=== PATIENT | female | born 1985 | race Caucasian/White ===

== ENCOUNTER → 2016-08-23 | Outpatient (CLI) | payer OTHER ==
--- NOTE | 2016-08-23 18:39 | CT ---
EXAMINATION TYPE: CT sinus wo con DATE OF EXAM: 08/23/2016 6:30 PM COMPARISON: NONE HISTORY: Nasal congestion, excess mucus and headaches x [address] DLP: 577.30 mGycm Automated exposure control for dose reduction was used. FINDINGS: There is moderate mucosal thickening in the right maxillary sinus. There is minimal mucosal thickenin g at the right ostiomeatal complex. There is thinning of the nasal turbinates. The nasal septum devia tariq to the left side. Orbital margins are intact. The maxilla is intact. I see no bony destructive pr ocess. There is no evidence of orbital mass. IMPRESSION: MILD RIGHT-SIDED MAXILLARY SINUSITIS. OTHERWISE NEGATIVE EXAM.
== END | disposition home or self-care (01) ==
LOC: RADCTMAIN 18:17
PROVIDERS: ATTEND Family Medicine
DX: J32.0 Chronic maxillary sinusitis (principal)
CPT/HCPCS: 70486

== ENCOUNTER 2020-02-29 09:01 | Inpatient (IN) | payer OTHER ==
[2020-02-29] MEDS ORDERED: CITRIC ACID-SODIUM CITRATE 15 ML CUP PO ONE (09:59)
[2020-02-29] MEDS ORDERED: CLINDAMYCIN 900 MG in DEXTROSE 5% IN WATER 50 ML IVPB ONE ×2 (09:59)
[2020-02-29] MEDS ORDERED: GENTAMICIN 280 MG in SODIUM CHLORIDE 0.9% 100 ML IVPB ONE (09:59)
[2020-02-29] MEDS ORDERED: LACTATED RINGERS 1,000 ML IV ONE (09:59)
--- NOTE | 2020-02-29 10:21 | US ---
EXAMINATION TYPE: US OB limited DATE OF EXAM: 02/29/2020 COMPARISON: NONE CLINICAL HISTORY: position, breech position last known. position EXAM PERFORMED: Transabdominal (TA) GESTATIONAL AGE / DATING Physician Established: (37 weeks/6 days) EDC: 03/15/20 No growth performed on today?s study per ordering physician SURVEY PRESENTATION: Breech LIE: Longitudinal HEART RATE: 150 bpm RHYTHM: Normal IMPRESSION: Limited exam performed for positioning demonstrates a 37 week 6 day gestation in a breech presentation. Heart rate 150 bpm.
[2020-02-29 10:43] LABS: Basophils % (A) 0 %; Eosinophils # (A) 0.3 k/uL (0-0.7); Eosinophils % (A) 2 %; HCT 41.3 % (34.0-46.0); HGB 13.3 gm/dL (11.4-16.0); Lymphocytes # (A) 2.3 k/uL (1.0-4.8); Lymphocytes % (A) 12 %; MCH 29.7 pg (25.0-35.0); MCHC 32.2 g/dL (31.0-37.0); MCV 92.2 fL (80.0-100.0); Mean Platelet Volume 11.2; Monocytes # (A) 1.1 k/uL (0-1.0); Monocytes % (A) 6 %; Neutrophils # (A) 15.1 k/uL (1.3-7.7); Neutrophils % (A) 80 %; Platelet Count 203 k/uL (150-450); RBC 4.48 m/uL (3.80-5.40); RDW 12.6 % (11.5-15.5); WBC 18.9 k/uL (3.8-10.6)
[2020-02-29] MEDS ORDERED: diphenhydrAMINE 50 MG/ML 1 ML VIAL IVP PRN ×2 (11:28)
[2020-02-29] MEDS ORDERED: diphenhydrAMINE 25 MG CAP PO PRN (11:28)
[2020-02-29] MEDS ORDERED: ZOLPIDEM 5 MG TAB PO PRN (11:28)
[2020-02-29] MEDS ORDERED: ONDANSETRON 4 MG/2 ML VIAL IVP PRN (11:28)
[2020-02-29] MEDS ORDERED: NALOXONE 0.4 MG/ML 1 ML VIAL IV PRN (11:28)
[2020-02-29] MEDS ORDERED: diphenhydrAMINE 50 MG CAP PO PRN (11:28)
[2020-02-29] MEDS ORDERED: SIMETHICONE 80 MG CHEWABLE PO PRN (11:28)
[2020-02-29] MEDS ORDERED: METOCLOPRAMIDE 5 MG/ML 2 ML VIAL IVP PRN (11:28)
[2020-02-29] MEDS ORDERED: OXYTOCIN 20 UNITS/1000 ML NS 1,000 ML IV SCH (11:30)
--- NOTE | 2020-02-29 11:33 | P.HPOB ---
History of Present Illness H&P Date: 02/29/20 Chief Complaint: IUP at 376/7 weeks, labor, breech This is a 34-year-old 3 para 1011 at 37-6/7 weeks with an estimated due date of 03/15. Patient presents with complaints of contractions that started around 5 AM, patient notes he is contractions to be quite uncomfortable. Patient denies vaginal bleeding or loss of fluid. Patient has been receiving routine care with myself within known breech presentation. On blood work shows a blood type of O+, rubella status immune, hepatitis B surface antigen negative, HIV negative, RPR nonreactive, group beta strep negative. Review of Systems Constitutional: Denies chills, Denies fatigue, Denies fever Ears, nose, mouth and throat: Denies headache Cardiovascular: Reports leg edema Respiratory: Denies dyspnea Gastrointestinal: Denies constipation, Denies diarrhea, Denies nausea, Denies vomiting Genitourinary: Reports Past Medical History Past Medical History: No Reported History History of Any Multi-Drug Resistant Organisms: None Reported Past Surgical History: No Surgical Hx Reported Past Anesthesia/Blood Transfusion Reactions: No Reported Reaction Past Psychological History: No Psychological Hx Reported Smoking Status: Never smoker - Past Family History Mother Additional Family Medical History / Comment(s): MS Medications and Allergies Home Medications Medication Instructions Recorded Confirmed Type Pnv No.95/Ferrous Fum/Folic AC 1 each PO DAILY 02/29/20 02/29/20 History [ Multivitamin Tablet] Allergies Allergy/AdvReac Type Severity Reaction Status Date / Time Penicillins Allergy Rash/Hives Verified 02/29/20 09:16 Exam Osteopathic Statement: *. No significant issues noted on an osteopathic structural exam other than those noted in the History and Physical/Consult. 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 Breech presentation is confirmed by ultrasound Results Result Diagrams: 02/29/20 09:55 Abnormal Lab Results - Last 24 Hours (Table) 02/29/20 Range/Units 09:55 WBC 18.9 H (3.8-10.6) k/uL Assessment and Plan (1) Term Current Visit: Yes Status: Acute Code(s): Z34.90 - ENCNTR FOR SUPRVSN OF NORMAL , UNSP, UNSP TRIMESTER SNOMED Code(s): 11323265 (2) Breech presentation Current Visit: Yes Status: Acute Code(s): O32.1XX0 - MATERNAL CARE FOR BREECH PRESENTATION, UNSP SNOMED Code(s): 0641236 Plan: Patient is admitted to labor and delivery for planned primary secondary to breech presentation. is reviewed all questions are ans wered. Risser reviewed with patient including but not limited to infection, bleeding, damage to bladder, bowel, injury patient states understanding and understands the reasons to proceed.
--- NOTE | 2020-02-29 11:36 | P.OP ---
Date of Procedure: 02/29/20 Preoperative Diagnosis: IUP at 37-6/7 weeks, breech presentation, active labor Postoperative Diagnosis: Same Procedure(s) Performed: Primary low transverse section Anesthesia: spinal Surgeon: Aga Sibley Centralized Traffic Control Operator #1: Macho Castellano Estimated Blood Loss (ml): 552 IV fluids (ml): 1,100 Urine output (ml): 150 Pathology: none sent Condition: stable Disposition: observation Indications for Procedure: This 34 year old 3 para 1011 at 37-6/7 weeks presented to labor and delivery with regular painful contractions and known breech presentation. Operative Findings: Normal uterus tubes and ovaries were appreciated, female delivered at 1102, weight of 5 lbs. 10 oz. in afua breech presentation Apgars of 8 and 9 at one and 5 minutes respectively. Description of Procedure: Patient is taken back to the operating suite where spinal anesthesia was found to be adequate. She is prepped and draped in the normal sterile fashion in do rsal supine position. A Pfannenstiel skin incision is made with the scalpel and carried through the underlying layer of fascia. The fascia is incised in the midline and extended laterally. The superior aspect of the fascial incision was then grasped chanelle clamps, elevated and underlying rectus muscles dissected off sharply. Attention was then turned the patient's inferior aspect of the fascial incision which was grasped chanelle clamps, elevated and underlying rectus muscles dissected off sharply. The rectus muscles were in the midline the peritoneum was identified and entered. The bladder blade was then inserted and the vesicouterine peritoneum was identified and the bladder flap was then created. The bladder blade was then reinserted. The hysterotomy incision was then made with the scalpel the sacrum was then encountered and the infant was delivered in breech presentation in the usual fashion. Of note amniotomy revealed clear fluid. The umbilical cord was then doubly clamped and cut and the infant was handed off to awaiting RN. The placenta was then delivered manually and the uterus cleared of all clots and debris. The uterus was then delivered from the abdomen. The uterine incision was closed with 0 Vicryl in a running locked fashion a second layer of suture was used to obtain hemostasis. He states his was appreciated. The uterus was then returned to the abdomen the uterine incision was inspected and hemostasis was appreciated. The gutters were cleared of all clots and debris. The fascia was then closed with 0 Vicryl in a running fashion from one lateral edge the other. The subcutaneous tissue was irrigated found to be hemostatic and closed with 3-0 Vicryl in a running fashion. The skin was then closed in subcu fashion with 4-0 Vicryl. Steri- Strips and sterile dressings were applied. All counts were noted to be correct 2. Patient and infant tolerated delivery well and were taken back to the patient's birthing suite.
[2020-02-29] MEDS ORDERED: ACETAMINOPHEN IV (For NPO) 1,000 MG in EMPTY BAG 1 BAG IVPB ONE (11:45)
[2020-02-29] MEDS ORDERED: IBUPROFEN IV 800 MG in SODIUM CHLORIDE 0.9% 250 ML IV ONE (11:45)
[2020-02-29] MEDS: LACTATED RINGERS 1,000 ML IV SCH ×2 (14:58→16:24)
[2020-02-29] MEDS: SENNOSIDES-DOCUSATE SODIUM 1 EACH TAB PO SCH (22:02)
[2020-03-01] MEDS: IBUPROFEN 600 MG TAB PO PRN ×3 (04:53→22:39)
--- NOTE | 2020-03-01 06:29 | P.PN ---
Progress Note - Text Progress Note Date: 03/01/20 Chloé is postop day 1 from a with spinal Duramorph. She's been doing very well postoperatively. She denies any significant pain. She denies any weakness, numbness, tingling, significant pruritus, or any bowel or bladder incontinence. She's been able to ambulate and able to urinate. She is awake this morning. No signs of sedation.
--- NOTE | 2020-03-01 08:32 | P.PNOBGPC ---
Subjective - Subjective Principal diagnosis: Postop day 1 Interval history: This 34-year-old 3 para 1011 presented to labor and delivery yesterday at 37-5/7 weeks in active labor and breech presentation. Patient was taken for primary . Patient has done well status post primary . On this postop day #1 she is a billing and voiding without difficulty. She is tolerating a regular diet without nausea or vomiting. She states her pain is well-controlled and denies concerns. Patient reports: Reports appetite normal, Reports voiding normally, Reports pain well controlled, Reports ambulating normally Pegram: doing well, nursing well Objective - Vital Signs Latest vital signs: Vital Signs Temp Pulse Resp BP Pulse Ox 03/01/20 04:00 98.0 F 59 L 16 91/52 98 03/01/20 00:00 97.5 F L 62 18 90/56 98 02/29/20 20:00 97.6 F 55 L 16 100/56 99 02/29/20 15:16 96.6 F L 62 17 102/57 99 02/29/20 13:30 97.7 F 55 L 17 103/56 100 02/29/20 13:00 54 L 18 97/54 100 02/29/20 12:30 96.9 F L 56 L 18 93/55 100 02/29/20 12:00 56 L 18 101/60 100 02/29/20 11:45 64 18 108/57 02/29/20 11:30 96.5 F L 78 18 125/59 99 02/29/20 09:55 97.1 F L 88 16 107/69 99 Intake and Output 02/29/20 03/01/20 03/01/20 22:59 06:59 14:59 Output Total 550 500 Balance -550 -500 Output: Urine 550 500 Other: Voiding Method Indwelling Catheter # Voids 0 0 - Exam Extremities: Present: normal, edema Abdomen: Present: normal appearance, soft Incision: Present: normal, dry Uterus: Present: normal, firm - Labs Labs: Abnormal Lab Results - Last 24 Hours (Table) 02/29/20 Range/Units 09:55 WBC 18.9 H (3.8-10.6) k/uL Neutrophils # 15.1 H (1.3-7.7) k/uL Monocytes # 1.1 H (0-1.0) k/uL Assessment and Plan (1) Term Current Visit: Yes Status: Acute Code(s): Z34.90 - ENCNTR FOR SUPRVSN OF NORMAL , UNSP, UNSP TRIMESTER SNOMED Code(s): 86406345 (2) Breech presentation Current Visit: Yes Status: Acute Code(s): O32.1XX0 - MATERNAL CARE FOR BREECH PRESENTATION, UNSP SNOMED Code(s): 7600864 (3) S/P section Current Visit: Yes Status: Acute Code(s): Z98.891 - HISTORY OF UTERINE SCAR FROM PREVIOUS SURGERY SNOMED Code(s): 563638429 Plan: This 34-year-old 3 para 1011 status post primary for breech presentation. Patient is doing well postoperatively will plan to continue routine postoperative care and anticipate discharge home tomorrow morning.
[2020-03-01] MEDS: SENNOSIDES-DOCUSATE SODIUM 1 EACH TAB PO SCH ×2 (08:44→19:53)
[2020-03-01 09:22] LABS: Basophils % (A) 0 %; Eosinophils # (A) 0.2 k/uL (0-0.7); Eosinophils % (A) 1 %; HCT 35.7 % (34.0-46.0); HGB 11.5 gm/dL (11.4-16.0); Lymphocytes # (A) 1.8 k/uL (1.0-4.8); Lymphocytes % (A) 11 %; MCH 29.7 pg (25.0-35.0); MCHC 32.1 g/dL (31.0-37.0); MCV 92.5 fL (80.0-100.0); Mean Platelet Volume 11.1; Monocytes # (A) 0.7 k/uL (0-1.0); Monocytes % (A) 5 %; Neutrophils % (A) 82 %; Platelet Count 219 k/uL (150-450); RBC 3.86 m/uL (3.80-5.40); RDW 12.3 % (11.5-15.5); WBC 15.9 k/uL (3.8-10.6)
[2020-03-01] MEDS: ACETAMINOPHEN TAB 325 MG TAB PO PRN ×2 (11:09→19:53)
[2020-03-02] MEDS ORDERED: diphenhydrAMINE 50 MG/ML 1 ML VIAL IVP PRN ×2 (01:38)
[2020-03-02] MEDS ORDERED: ONDANSETRON 4 MG/2 ML VIAL IVP PRN (01:38)
[2020-03-02] MEDS ORDERED: NALOXONE 0.4 MG/ML 1 ML VIAL IV PRN (01:39)
[2020-03-02] MEDS: IBUPROFEN 600 MG TAB PO PRN (05:16)
[2020-03-02] MEDS: LACTATED RINGERS 1,000 ML IV SCH ×5 (07:25→07:29)
[2020-03-02] MEDS: ACETAMINOPHEN TAB 325 MG TAB PO PRN (08:49)
[2020-03-02] MEDS: SENNOSIDES-DOCUSATE SODIUM 1 EACH TAB PO SCH (08:50)
--- NOTE | 2020-03-02 09:08 | P.DS ---
Providers Date of admission: 02/29/20 10:00 Expected date of discharge: 03/02/20 Attending physician: Aga Sibley Primary care physician: Stated None - Discharge Diagnosis(es) (1) Term Current Visit: Yes Status: Acute (2) Breech presentation Current Visit: Yes Status: Acute (3) S/P section Current Visit: Yes Status: Acute Hospital Course: This is a 34-year-old 3 para 1011 that presented to labor and delivery at 37-5/7 weeks with complaints of regular painful contractions. Patient was noted to be 4 cm and breech in presentation. Patient was known breech presentation. Patient was admitted to labor and delivery and primary was performed secondary to breech presentation. For further details on the C- section please see the operative report. Patient delivered a viable female at 1102, weight of 5 lbs. 10 oz. with Apgars of 8 and 9 at one and 5 minutes respectively. Patient's postoperative course has been essentially uneventful. On this day #2 she is ambulating and voiding without difficulty. She is tolerating a regular diet without nausea or vomiting. States her pain is well-controlled and denies concerns. She does wish discharge home. Plan - Discharge Summary New Discharge Prescriptions: No Action Pnv No.95/Ferrous Fum/Folic AC [ Multivitamin Tablet] 1 each PO DAILY Discharge Medication List Pnv No.95/Ferrous Fum/Folic AC [ Multivitamin Tablet] 1 each PO DAILY 02/29/20 [History] Follow up Appointment(s)/Referral(s): Aga Sibley DO [Doctor of Osteopathic Medicine] - 2 Weeks Discharge Disposition: HOME SELF-CARE
[2020-03-02 09:36] VITALS: BP 104/60; PULSE 68; RESP 16; TEMP 97.7
== END 2020-03-02 11:10 | disposition home or self-care (01) | DRG 788 ==
LOC: FBPOP 09:01 → 4FBP 10:00
PROVIDERS: ADMIT Obstetrics & Gynecology Obstetrics; ATTEND Obstetrics & Gynecology Obstetrics
PROC: 10D00Z1 Extraction of Products of Conception, Low, Open Approach (ICD-10-PCS; principal; 2020-02-29 10:38)
DX: O64.1XX0 Obstructed labor due to breech presentation, not applicable or unspecified (principal); Z37.0 Single live birth; Z3A.37 37 weeks gestation of pregnancy; O99.62 Diseases of the digestive system complicating childbirth; K21.9 Gastro-esophageal reflux disease without esophagitis; Z79.899 Other long term (current) drug therapy; Z82.0 Family history of epilepsy and other diseases of the nervous system; Z88.0 Allergy status to penicillin
CPT/HCPCS: 59025; 76815; 85025; 86850; 86900; 86901; 99213

== ENCOUNTER → 2023-04-28 | Outpatient (CLI) | payer OTHER ==
--- NOTE | 2023-04-28 14:48 | CA ---
Exercise Stress Test Report Name: Chloé Cardenas Exam Date: 04/28/2023 10:49 Exam Location: [place] Stress Ht (in): 62 Wt (lb): 160 BSA: 1.74 Ordering Phys: Vicky Smith DO Referring Phys: VICKY SMITH,, Technologist: PHUONG Age: 37 Gender: F : 1985 Procedure CPT: Indications: R00.1 bradycardia ICD-10 Codes: Patient History: CHEST PAIN, PALPITATIONS, NUMBNESS IN ARM Medications: NONR Meds past 24 hrs: Pretest Chest Pain: STRESS TEST Sandro Protocol Exercise Duration (min:sec): 07:[address] Depressions (mm): Angina Score: Dsouza Score: Resting HR (bpm): 86 Peak HR (bpm): 156 Resting BP (mmHg): 104 / 77 Peak BP (mmHg): 158 / 71 MPHR: 181 Target HR: 154 % MPHR: 86 METS: 8.9 Total Dose: Peak Dose: Atropine: Double Product: 57689 BP Response: Stress Termination: MAX EXERTION/TARGET HR Stress Symptoms: NO SYMPTOMS Stress Summary: ECG ANALYSIS Resting ECG: Stress ECG: CONCLUSIONS Patient underwent exercise stress EKG with a Sandro protocol treadmill stress test. Patient exercised into Stage 3 for a total of 7 minutes and 1 reaching a total of 8.9 METS. Patient's maximum heart rate was 156 which represented 86% age- predicted maximum heart rate. Stress EKG findings: At baseline patient's EKG showed normal sinus rhythm, normal axis, no significant ST-T wave abnormalities. At peak exercise, EKG showed no significant change from baseline. Conclusions: 1. Normal EKG response to exercise without evidence of inducible ischemia. 2. Fair exercise capacity. Dr. Jose Alberto Mendoza DO (Electronically Signed) Final Date: 28 April 2023 14:46
== END | disposition home or self-care (01) ==
LOC: RADNMMAIN 10:16
PROVIDERS: ATTEND Family Medicine
DX: R00.1 Bradycardia, unspecified (principal); R00.2 Palpitations; R07.9 Chest pain, unspecified; R20.0 Anesthesia of skin
CPT/HCPCS: 93017

== ENCOUNTER → 2023-04-28 | Outpatient (CLI) | payer OTHER ==
--- NOTE | 2023-04-29 12:29 | CA ---
Transthoracic Echo Report Name: Chloé Cardenas Age: 37 Gender: F : 1985 Exam Date: 04/28/2023 14:55 Exam Location: [place] Echo Ht (in): 62 Wt (lb): 160 Ordering Physician: Demetrio Tineo DO Attending/Referring Phys: Summer Babysitter Maria Teresa Easley RDCS Procedure CPT: Indications: R00.1 bradycardia Cardiac Hx: Technical Quality: Good Contrast 1: Total Dose (mL): Contrast 2: Total Dose (mL): MEASUREMENTS (Male / Female) Normal Values 2D ECHO LV Diastolic Diameter PLAX 4.6 cm 4.2 - 5.9 / 3.9 - 5.3 cm LV Systolic Diameter PLAX 3.0 cm IVS Diastolic Thickness 0.9 cm 0.6 - 1.0 / 0.6 - 0.9 cm LVPW Diastolic Thickness 1.0 cm 0.6 - 1.0 / 0.6 - 0.9 cm LV Relative Wall Thickness 0.4 RV Internal Dim ED PLAX 3.2 cm LA Systolic Diameter LX 3.6 cm 3.0 - 4.0 / 2.7 - 3.8 cm LV Diastolic Volume MOD 4C 79.1 cm??? LV Systolic Volume MOD 4C 37.1 cm??? LV Ejection Fraction MOD 4C 53.1 % LV Cardiac Index MOD 4C 1393.8 cm???/min???m??? LV Diastolic Length 4C 8.4 cm LV Systolic Length 4C 6.7 cm LV Diastolic Volume MOD 2C 58.4 cm??? LV Systolic Volume MOD 2C 30.8 cm??? LV Ejection Fraction MOD 2C 47.3 % LV Cardiac Index MOD 2C 917.9 cm???/min???m??? LV Diastolic Length 2C 8.0 cm LV Systolic Length 2C 6.6 cm LA Volume 37.0 cm??? 18 - 58 / 22 - 52 cm??? LA Volume Index 20.5 cm???/m??? 16 - 28 cm???/m??? M-MODE Aortic Root Diameter MM 2.9 cm MV E Point Septal Separation 0.7 cm AV Cusp Separation MM 2.2 cm DOPPLER AV Peak Velocity 157.7 cm/s AV Peak Gradient 10.0 mmHg MV Area PHT 3.3 cm??? Mitral E Point Velocity 89.6 cm/s Mitral A Point Velocity 62.6 cm/s Mitral E to A Ratio 1.4 MV Deceleration Time 229.1 ms MV E' Velocity 8.0 cm/s Mitral E to MV E' Ratio 11.2 FINDINGS Left Ventricle Left ventricular ejection fraction is estimated at 55-60 %. Left ventricular cavity size normal. Mildly increased posterior wall thickness. Right Ventricle Normal right ventricular size. Unable to estimate the right ventricular systolic pressure. Right Atrium Normal right atrial size. Left Atrium Normal left atrial size. Mitral Valve Structurally normal mitral valve. No mitral stenosis, regurgitation or prolapse. Aortic Valve Trileaflet aortic valve. No aortic stenosis. Tricuspid Valve Structurally normal tricuspid valve. No tricuspid stenosis, regurgitation or prolapse. Pulmonic Valve Structurally normal pulmonic valve. No pulmonic regurgitation. Pericardium No pericardial effusion. Aorta Normal size aortic root and proximal ascending aorta. CONCLUSIONS Normal LV function Previewed by: Dr. Cristhian Conti MD (Electronically Signed) Final Date: 29 April 2023 12:29
== END | disposition home or self-care (01) ==
LOC: RADECHMAIN 14:47
PROVIDERS: ATTEND Family Medicine
DX: R00.1 Bradycardia, unspecified (principal)
CPT/HCPCS: 93306

== ENCOUNTER → 2023-10-28 | Outpatient (CLI) | payer OTHER ==
--- NOTE | 2023-10-30 08:53 | MM ---
Reason for Exam: Screening (asymptomatic). Baseline mammogram. Patient History: Menarche at age 10. First Full-Term at age 23. Currently using Hormonal Contraceptives, starting at age 34. Last menstrual period: 05/03/2020 Risk Values: Jackie 5 year model risk: 0.6%. NCI Lifetime model risk: 11.1%. Prior Study Comparison: Patient's first Mammogram. Tissue Density: The breasts are heterogeneously dense, which may obscure small masses. Findings: Analyzed By CAD. There is no suspicious group of microcalcifications or new suspicious mass in either breast. Benign-appearing calcifications. Overall Assessment: Benign, BI-RAD 2 Management: Screening Mammogram of both breasts in 1 year. . Patient should continue monthly self-breast exams. A clinical breast exam by your physician is recommended on an annual basis. This exam should not preclude additional follow-up of suspicious palpable abnormalities. Note on Jackie scores and lifetime risk: 1. A Jackie score greater than 3% is considered moderate risk. If this is the case, consider specialist referral to assess eligibility for a risk reducing agent. 2. If overall lifetime risk for the development of breast cancer is 20% or higher, the patient may qualify for future screening with alternating mammogram and breast MRI. Electronically signed and approved by: Sriram Dyer M.D. Radiologis
== END | disposition home or self-care (01) ==
LOC: RADMAMWWP 07:33
PROVIDERS: ATTEND Obstetrics & Gynecology Obstetrics
DX: Z12.31 Encounter for screening mammogram for malignant neoplasm of breast (principal)
CPT/HCPCS: 77063; 77067